=== PATIENT | male | born 1980 | race Caucasian/White ===

== ENCOUNTER 2020-09-10 17:23 | Inpatient (IN) ==
[2020-09-10] MEDS ORDERED: dexAMETHasone**PF** 10 MG/ML VIAL IV ONE (17:58)
[2020-09-10] MEDS ORDERED: SODIUM CHLORIDE 0.9% 1000ML 500 ML IV ONE (17:58)
--- NOTE | 2020-09-10 18:04 | Emergency Department Note ---
Impression & Plan Hypoxia, Pneumonia due to COVID-19 virus, SOB (shortness of breath), Failure of outpatient treatment ED Provider Note NAME: JAS SANCHEZ AGE: 39 SEX: M : 1980 ARRIVES VIA: Walk-In INFORMANT: [Patient] ED PROVIDER(S): [Gerardo Lawrence MD] CHIEF COMPLAINT: Hypoxia HISTORY OF PRESENT ILLNESS: Patient is a 39-year-old male presents to the ED with low oxygen levels. His saturation was 88% at home on the portable pulse ox meter. The patient was diagnosed with COVID-19 pneumonia yesterday. He was discharged on steroids, a Combivent inhaler, cough syrup. The patient states that today, he felt washed out. He felt as if all the energy had been drained from him. He has noticed some shortness of breath especially with exertion. He has had cough. His O2 saturation today read 88%, this is the lowest it has been, he presents to the ED as instructed. Patient has not had vomiting. He has had Covid symptoms now for about 1 week. His also has Covid, she is doing better than he. REVIEW OF SYSTEMS: See HPI for pertinent positives and negatives. A total of ten systems were reviewed and were otherwise negative. PMHx/PSHx: See Below SOCIAL HISTORY: See Below. PHYSICAL EXAM: GENERAL: Patient is in no acute distress. HEENT: No acute trauma, normocephalic atraumatic, mucous membranes moist, no nasal congestion, no scleral icterus. NECK: No stridor, no adenopathy, no meningismus, trachea is midline. LUNGS: There are a few crackles at both bases, no wheezing, no obvious respiratory distress. HEART: Mildly tachycardic, regular rhythm, no murmurs. ABDOMEN: Soft, nontender, bowel sounds positive, no hernias, no peritonitis. EXTREMITIES: No cyanosis or edema, full range of motion of all the joints without pain or difficulty, no signs for acute trauma. NEUROLOGIC: Oriented x 3, no acute motor or sensory deficits, no focal weakness. SKIN: No rash, no jaundice, no diaphoresis. DIFFERENTIAL DIAGNOSIS: Reactive airway disease, pneumonia, pneumothorax, Covid pneumonia, failed outpatient treatment, COPD, CHF, infection, cardiac ischemia, pulmonary embolism, bronchitis, musculoskeletal, gastrointestinal, as well as other pathologies. EMERGENCY DEPARTMENT COURSE/PROCEDURES: ECG: Indication was shortness of breath. The ECG shows a normal sinus rhythm with a rate of 90. There is no ST elevation, no PVCs. The QTc is 452. Continuous Cardiac Monitoring: An order was placed for continuous cardiac monitoring. The monitor shows a rate of 95 with normal sinus rhythm. MEDICAL DECISION MAKING: There is no leukocytosis or concerning anemia. There is a normal platelet count. D-dimer was elevated at over 1000, this certainly makes the chance of PE more likely. There was a slightly low potassium at 3.3. No kidney failure. E CG shows a sinus rhythm, no acute ischemia. Cardiac enzyme testing x1 is not consistent with acute cardiac injury. Chest CT does show evidence for Covid pneumonia, no PE noted. On exam, the patient had some crackles at his bases. He did become hypoxic while here in the ED. The patient presents with worsening breathing. He was hypoxic at home and that has been confirmed here in our emergency department. The patient was given IV potassium. He was given albuterol via MDI. He received a dose of IV Decadron 6 mg. He was given IV saline, 500 cc. Patient is hypoxic from Covid pneumonia. He has worsened since yesterday. He does deserve a hospital stay. I spoke to the patient and case management. The on-call hospitalist was consulted. Past Med/Surg History Medical History Hypertension Social History Smoking Status: Former smoker Tobacco Type: Cigarettes Feels Safe at Home: Yes Allergies Allergies Allergy/AdvReac Type Severity Reaction Status Date / Time aspirin Allergy Intermediate WHEN Verified 09/10/20 19:23 YOUNGER HAD NOSE BLEEDS AND INCREASE BLEEDING ON ASA. Home Meds Home Medications Medication Instructions Recorded Confirmed atorvastatin 20 mg PO HS 09/09/20 09/10/20 benzonatate 100 mg PO DIRECTED PRN 09/09/20 09/10/20 hydrochlorothiazide 25 mg PO QAM 09/09/20 09/10/20 lisinopril 40 mg PO HS 09/09/20 09/10/20 metoprolol succinate 25 mg PO HS 09/09/20 09/10/20 promethazine-codeine 0 ml PO DIRECTED PRN 09/09/20 09/10/20 Previous Rx's Medication Instructions Recorded dexamethasone 6 mg PO DAILY #10 tab 09/09/20 Results & Data (ED) Vital Signs Vital Signs - 24 hr 09/10/20 17:28 09/10/20 18:43 Temperature 36.7 C Temperature Source Temporal Artery Scan Pulse Rate 95 H Pulse Rhythm Regular Pulse Strength Normal Respiratory Rate 20 Respiratory Effort / Characteristics Non-Labored Spontaneous Respiratory Depth Normal Respiratory Pattern Regular Blood Pressure 119/76 Blood Pressure Mean 90 Blood Pressure Position Sitting Pulse Oximetry 96 84 L Oxygen Delivery Method Room Air Room Air Nasal Cannula Sepsis Recent Fever Within 48 Hours No Sepsis New/Unexplained Change in Mental Status N/A Sepsis Action Taken by Nursing No Action Required Oxygen Flow Rate - Titration 2 Pulse Oximetry Post Tiitration 95 Home Medications Current Medication List: was personally reviewed by me Laboratory Data Attestation: I reviewed the patient's lab results. Result diagrams: 09/10/20 18:22 09/10/20 18:22 Lab Results 09/10/20 09/10/20 09/10/20 Range/Units 18:22 18:22 18:22 WBC 6.96 (4.8-10.8) K/uL RBC 4.87 (4.7-6.1) M/uL Hgb 14.5 (14.0-18.0) g/dL Hct 40.5 L (42-52) % MCV 83.2 (80-100) fL MCH 29.8 (25-34) pg MCHC 35.8 (32-36) g/dL RDW Std Deviation 39.3 (36.4-46.3) fL RDW Coeff of [place]io 12.9 (11.5-14.5) % Plt Count 187 (130-400) K/uL MPV 9.1 (7.4-10.4) fL Immature Gran % (Auto) 0.1 % Neut % (Auto) 85.4 % Lymph % (Auto) 9.5 % [place] % (Auto) 5.0 % Eos % (Auto) 0.0 % Baso % (Auto) 0.0 % Neut # (Auto) 5.94 (1.4-6.5) K/uL Lymph # (Auto) 0.66 L (1.2-3.4) K/uL [place] # (Auto) 0.35 (0.11-0.59) K/uL Eos # (Auto) 0.00 (0-0.5) K/uL Baso # (Auto) 0.00 (0-0.2) K/uL Immature Gran # (Auto) 0.01 (0.00-0.02) K/uL APTT (21.0-31.0) Seconds PTT Ratio D-Dimer 1110 H* (0-500) ug/L FEU Sodium 134 L (136-145) mmol/L Potassium 3.3 L (3.5-5.1) mmol/L Chloride 97 L (98-107) mmol/L Carbon Dioxide 32 (21-32) mmol/L Anion Gap 5.0 (3-11) BUN 21 H (7-18) mg/dl Creatinine 1.18 (0.6-1.4) mg/dl Est Cr Clr Drug Dosing 106.1 ml/min Est GFR ( Amer) 88.9 Est GFR (Non-Af Amer) 76.7 BUN/Creatinine Ratio 18.0 (10-20) Glucose 129 H (70-99) mg/dl Calcium 9.0 (8.5-10.1) mg/dl Troponin I < 0.015 (0-0.045) ng/ml 09/10/20 Range/Units 18:22 WBC (4.8-10.8) K/uL RBC (4.7-6.1) M/uL Hgb (14.0-18.0) g/dL Hct (42-52) % MCV (80-100) fL MCH (25-34) pg MCHC (32-36) g/dL RDW Std Deviation (36.4-46.3) fL RDW Coeff of [place] (11.5-14.5) % Plt Count (130-400) K/uL MPV (7.4-10.4) fL Immature Gran % (Auto) % Neut % (Auto) % Lymph % (Auto) % [place] % (Auto) % Eos % (Auto) % Baso % (Auto) % Neut # (Auto) (1.4-6.5) K/uL Lymph # (Auto) (1.2-3.4) K/uL [place] # (Auto) (0.11-0.59) K/uL Eos # (Auto) (0-0.5) K/uL Baso # (Auto) (0-0.2) K/uL Immature Gran # (Auto) (0.00-0.02) K/uL APTT 25.1 (21.0-31.0) Seconds PTT Ratio 1.0 D-Dimer (0-500) ug/L FEU Sodium (136-145) mmol/L Potassium (3.5-5.1) mmol/L Chloride (98-107) mmol/L Carbon Dioxide (21-32) mmol/L Anion Gap (3-11) BUN (7-18) mg/dl Creatinine (0.6-1.4) mg/dl Est Cr Clr Drug Dosing ml/min Est GFR ( Amer) Est GFR (Non-Af Amer) BUN/Creatinine Ratio (10-20) Glucose (70-99) mg/dl Calcium (8.5-10.1) mg/dl Troponin I (0-0.045) ng/ml Administered Medications Discontinued Medications Dexamethasone Sodium Phosphate (DexamethasonePf 10 Mg/Ml Vial) 6 mg IV NOW ONE Stop: 09/10/20 17:59 Last Admin: 09/10/20 18:42 Dose: 6 mg Documented by: [id number] Sodium Chloride (Nss 1000ml) 500 mls @ 999 mls/hr IV .Q31M ONE Stop: 09/10/20 18:28 Last Admin: 09/10/20 18:42 Dose: 999 mls/hr Documented by: [id number] Ioversol (Optiray 350 500ml) 117 ml IV ONCE ONE Stop: 09/10/20 20:26 Last Admin: 09/10/20 20:25 Dose: 117 ml Documented by: [id number] Imaging Data Radiologist's Impression: Chest CTA 09/10/20 19:31 CT ANGIOGRAM OF THE CHEST CLINICAL HISTORY: Atypical chest pain. Hypoxia. Covid positive patient COMPARISON STUDY: Chest x-ray dated 09/09/2020 TECHNIQUE: Following the IV administration of 117 mL of Optiray, CT angiogram of the thorax was performed from the thoracic inlet to the lung bases utilizing the pulmonary embolus protocol. Images are reviewed in the axial, sagittal, and coronal planes. IV contrast was administered without complication. MIP imaging was performed. A dose lowering technique was utilized adhering to the principles of ALARA. CT DOSE: 696.95 mGy.cm FINDINGS: There is hepatic steatosis. There is possible splenomegaly There are borderline enlarged mediastinal and hilar lymph nodes, likely reactive. There is no evidence of thoracic aortic dilatation There were no pulmonary artery filling defects to indicate acute pulmonary embolism. No pleural effusions are visualized. There are multifocal groundglass pulmonary opacities consistent with a multifocal pneumonia. The findings are consistent with although not specific for Covid 19 pneumonia IMPRESSION: 1. No evidence of acute pulmonary embolism 2. Multifocal pulmonary airspace opacities consistent with a multifocal pneumonia. Findings are consistent with although not specific for Covid 19 pneumonia 3. Hepatic steatosis ACT 112: Negative or not required by law. Electronically signed by: Eben Bell M.D. 09/10/2020 8:39 PM Discharge Plan Visit Data Chief Complaint: Illness Stated Complaint: LOW OXYGEN LEVELS ED Provider: Gerardo Lawrence Discharge Problem: Hypoxia, Pneumonia due to COVID-19 virus, SOB (shortness of breath), Failure of outpatient treatment Patient Disposition: Admitted As Inpatient Condition: Fair Forms Stand Alone Forms: [facility] Prescriptions Prescriptions: No Action atorvastatin 20 mg tablet 20 mg PO HS RF: 0 promethazine-codeine 6.25-10 mg/5 mL syrup 0 ml PO DIRECTED PRN (Reason: Cough) RF: 0 benzonatate 100 mg capsule 100 mg PO DIRECTED PRN (Reason: Cough) RF: 0 hydrochlorothiazide 25 mg tablet 25 mg PO QAM RF: 0 metoprolol succinate 25 mg tablet extended release 24 hr 25 mg PO HS RF: 0 lisinopril 40 mg tablet 40 mg PO HS RF: 0 dexamethasone 6 mg tablet 6 mg PO DAILY Qty: 10 RF: 0 Referrals Referrals: Niecy Gilliam MD [Primary Care Provider] -
[2020-09-10 18:37] LABS: Hematocrit (blood only) 40.5 % (42-52); Hemoglobin 14.5 g/dL (14.0-18.0); Immature Granulocytes # (auto) 0.01 K/uL (0.00-0.02); Immature Granulocytes % (auto) 0.1 %; Lymphocytes # (auto) 0.66 K/uL (1.2-3.4); Lymphocytes % (auto) 9.5 %; Mean Corpuscular Hemoglobin 29.8 pg (25-34); Mean Corpuscular Hgb Conc 35.8 g/dL (32-36); Mean Corpuscular Volume 83.2 fL (80-100); Mean Platelet Volume 9.1 fL (7.4-10.4); Monocytes # (auto) 0.35 K/uL (0.11-0.59); Neutrophils # (auto) 5.94 K/uL (1.4-6.5); Neutrophils % (auto) 85.4 %; Platelet Count 187 K/uL (130-400); RDW Coefficient of Variation 12.9 % (11.5-14.5); RDW Standard Deviation 39.3 fL (36.4-46.3); Red Blood Count 4.87 M/uL (4.7-6.1); White Blood Count 6.96 K/uL (4.8-10.8)
[2020-09-10 18:49] LABS: Blood Urea Nitrogen 21 mg/dl (7-18); Carbon Dioxide 32 mmol/L (21-32); Chloride 97 mmol/L (98-107); Creatinine Clr Calc Pharmacy 106.1 ml/min; Est GFR (African American) 88.9; Est GFR (Non-African American) 76.7; Glucose 129 mg/dl (70-99); Potassium 3.3 mmol/L (3.5-5.1); Sodium 134 mmol/L (136-145)
[2020-09-10 18:53] LABS: Troponin I < 0.015 ng/ml (0-0.045)
[2020-09-10] MEDS ORDERED: POTASSIUM CHLORIDE / WTR 10 MEQ/100 ML PLCT IV ONE (18:57)
[2020-09-10 19:28] LABS: D Dimer 1110 ug/L FEU (0-500)
[2020-09-10] MEDS ORDERED: OPTIRAY 350 500ml IV ONE (20:25)
--- NOTE | 2020-09-10 20:41 | CT Scan Report ---
CT ANGIOGRAM OF THE CHEST CLINICAL HISTORY: Atypical chest pain. Hypoxia. Covid positive patient COMPARISON STUDY: Chest x-ray dated 09/09/2020 TECHNIQUE: Following the IV administration of 117 mL of Optiray, CT angiogram of the thorax was perfo rmed from the thoracic inlet to the lung bases utilizing the pulmonary embolus protocol. Images are r eviewed in the axial, sagittal, and coronal planes. IV contrast was administered without complication . MIP imaging was performed. A dose lowering technique was utilized adhering to the principles of AL BRIGHT. CT DOSE: 696.95 mGy.cm FINDINGS: There is hepatic steatosis. There is possible splenomegaly There are borderline enlarged mediastinal and hilar lymph nodes, likely reactive. There is no evidence of thoracic aortic dilatation There were no pulmonary artery filling defects to indicate acute pulmonary embolism. No pleural effusions are visualized. There are multifocal groundglass pulmonary opacities consistent with a multifocal pneumonia. The find ings are consistent with although not specific for Covid 19 pneumonia IMPRESSION: 1. No evidence of acute pulmonary embolism 2. Multifocal pulmonary airspace opacities consistent with a multifocal pneumonia. Findings are consi stent with although not specific for Covid 19 pneumonia 3. Hepatic steatosis ACT 112: Negative or not required by law. Electronically signed by: Eben Bell M.D. 09/10/2020 8:39 PM
[2020-09-10] MEDS ORDERED: LEVALBUTEROL TARTRATE 15 GM HFA.AER.AD INH STA (20:52)
[2020-09-10] MEDS ORDERED: POTASSIUM CHLORIDE CRTAB 20 MEQ TABCR PO STA (20:54)
[2020-09-10 21:12] LABS: Partial Thromboplastin Time 25.1 Seconds (21.0-31.0)
--- NOTE | 2020-09-10 21:39 | History & Physical Report ---
Date of Service September 10, 2020 Assessment & Plan (1) Acute hypoxemic respiratory failure: secondary to severe COVID-19 pneumonia Failed outpatient treatment hypertension, stable Hypokalemia secondary to poor p.o. intake, home diuretic Rx, transient diarrhea symptoms Hyperglycemia rule out DM past tobacco abuse Medical telemetry Supplemental O2 Baseline ABG Decadron Patient hesitant about receiving remdesivir and convalescent plasma for now. Replace potassium, IVF, hold home diuretic until patient euvolemic Check hemoglobin A1c DVT prophylaxis per Lovenox subcu Full code Text document was generated using [employer] voice recognition software. It may contain grammatical or spelling errors. Kindly contact undersigned for clarification of any documentation item in question. History of Present Illness Chief Complaint: low oxygen Primary Care Provider: Niecy Marcelo MD History obtained from patient, family, and records. Medical history significant for hypertension, hyperlipidemia, past tobacco abuse. 1 week history of flulike symptoms, dry cough, shortness of breath. Chest pain with coughing. Transient diarrhea symptoms. Sick COVID-19 contacts at home. Patient seen at the ER yesterday. COVID-19 test was positive. Lowest O2 sats 91 to 92%. Chest x-ray showed viral pneumonia. Patient discharged on oral Decadron course. At home, O2 sats on home pulse ox noted to be 88. Patient returned to the ER. Medical History as above Surgical History : Right leg trauma surgery Family History : Heart disease, DM Personal/Social history : Past tobacco abuse, occasional EtOH intake, underground work Allergies Allergy/AdvReac Type Severity Reaction Status Date / Time aspirin Allergy Intermediate WHEN Verified 09/10/20 19:23 YOUNGER HAD NOSE BLEEDS AND INCREASE BLEEDING ON ASA. Home Medications Medication Instructions Recorded Confirmed Type atorvastatin 20 mg PO HS 09/09/20 09/10/20 History benzonatate 100 mg PO DIRECTED PRN 09/09/20 09/10/20 History dexamethasone 6 mg PO DAILY #10 tab 09/09/20 09/10/20 Rx hydrochlorothiazide 25 mg PO QAM 09/09/20 09/10/20 History lisinopril 40 mg PO HS 09/09/20 09/10/20 History metoprolol succinate 25 mg PO HS 09/09/20 09/10/20 History promethazine-codeine 0 ml PO DIRECTED PRN 09/09/20 09/10/20 History Past Med/Surg History Medical History Hypertension Social History Smoking Status: Former smoker Tobacco Type: Cigarettes Feels Safe at Home: Yes Review of Systems Review of Systems: As per HPI, all 10 systems reviewed, all other ROS negative Physical Exam Physical Exam: GENERAL: Comfortable, obese, slightly anxious, no respiratory distress SKIN: Normal color, warm HEENT: [place] palpebral conjunctivae, no ptosis, dry buccal mucosa, nasal cannula in place NECK : Supple, short neck, no tenderness CHEST : Decreased breath sounds, no tenderness HEART : RRR, no obvious murmurs ABDOMEN: Some distention, nontender EXTREMITIES : Minimal LE swelling, no LE tenderness, no other conspicuous deformities noted NEUROLOGIC : Coherent, no facial asymmetry, no other gross focality Results & Data Results & Data ([facility]) Vital Signs (Past 12 Hours) Vital Signs Temp Pulse Resp BP Pulse Ox 09/10/20 21:00 117/68 96 09/10/20 20:00 118/81 95 09/10/20 19:30 125/81 94 09/10/20 19:00 126/74 96 09/10/20 18:45 86 12 116/76 97 09/10/20 18:43 84 L 09/10/20 17:28 36.7 C 95 H 20 119/76 96 Laboratory Results Laboratory Results WBC 6.96 K/uL (4.8-10.8) 09/10/20 18: RBC 4.87 M/uL (4.7-6.1) 09/10/20 18:22 Hgb 14.5 g/dL (14.0-18.0) 09/10/20 18:22 Hct 40.5 % (42-52) L 09/10/20 18:22 MCV 83.2 fL (80-100) 09/10/20 18: MCH 29.8 pg (25-34) 09/10/20 18:22 MCHC 35.8 g/dL (32-36) 09/10/20 18:22 RDW Std Deviation 39.3 fL (36.4-46.3) 09/10/20 18: RDW Coeff of Caio 12.9 % (11.5-14.5) 09/10/20 18: Plt Count 187 K/uL (130-400) 09/10/20 18: MPV 9.1 fL (7.4-10.4) 09/10/20 18: Immature Gran % (Auto) 0.1 % 09/10/20 18: Neut % (Auto) 85.4 % 09/10/20 18: Lymph % (Auto) 9.5 % 09/10/20 18: [place] % (Auto) 5.0 % 09/10/20 18: Eos % (Auto) 0.0 % 09/10/20 18: Baso % (Auto) 0.0 % 09/10/20 18: Neut # (Auto) 5.94 K/uL (1.4-6.5) 09/10/20 18: Lymph # (Auto) 0.66 K/uL (1.2-3.4) L 09/10/20 18: [place] # (Auto) 0.35 K/uL (0.11-0.59) 09/10/20 18: Eos # (Auto) 0.00 K/uL (0-0.5) 09/10/20 18: Baso # (Auto) 0.00 K/uL (0-0.2) 09/10/20 18: Immature Gran # (Auto) 0.01 K/uL (0.00-0.02) 09/10/20 18: APTT 25.1 Seconds (21.0-31.0) 09/10/20 18: PTT Ratio 1.0 09/10/20 18: D-Dimer 1110 ug/L FEU (0-500) H* 09/10/20 18: Sodium 134 mmol/L (136-145) L 09/10/20 18: Potassium 3.3 mmol/L (3.5-5.1) L 09/10/20 18: Chloride 97 mmol/L (98-107) L 09/10/20 18: Carbon Dioxide 32 mmol/L (21-32) 09/10/20 18: Anion Gap 5.0 (3-11) 09/10/20 18: BUN 21 mg/dl (7-18) H 09/10/20 18:22 Creatinine 1.18 mg/dl (0.6-1.4) 09/10/20 18:22 Est Cr Clr Drug Dosing 106.1 ml/min 09/10/20 18:22 Est GFR ( Amer) 88.9 09/10/20 18:22 Est GFR (Non-Af Amer) 76.7 09/10/20 18:22 BUN/Creatinine Ratio 18.0 (10-20) 09/10/20 18:22 Glucose 129 mg/dl (70-99) H 09/10/20 18:22 Calcium 9.0 mg/dl (8.5-10.1) 09/10/20 18:22 Troponin I < 0.015 ng/ml (0-0.045) 09/10/20 18:22 Impressions Chest CTA 09/10/20 19:31 CT ANGIOGRAM OF THE CHEST CLINICAL HISTORY: Atypical chest pain. Hypoxia. Covid positive patient COMPARISON STUDY: Chest x-ray dated 09/09/2020 TECHNIQUE: Following the IV administration of 117 mL of Optiray, CT angiogram of the thorax was performed from the thoracic inlet to the lung bases utilizing the pulmonary embolus protocol. Images are reviewed in the axial, sagittal, and coronal planes. IV contrast was administered without complication. MIP imaging was performed. A dose lowering technique was utilized adhering to the principles of ALARA. CT DOSE: 696.95 mGy.cm FINDINGS: There is hepatic steatosis. There is possible splenomegaly There are borderline enlarged mediastinal and hilar lymph nodes, likely reactive. There is no evidence of thoracic aortic dilatation There were no pulmonary artery filling defects to indicate acute pulmonary embolism. No pleural effusions are visualized. There are multifocal groundglass pulmonary opacities consistent with a multifocal pneumonia. The findings are consistent with although not specific for Covid 19 pneumonia IMPRESSION: 1. No evidence of acute pulmonary embolism 2. Multifocal pulmonary airspace opacities consistent with a multifocal pneumonia. Findings are consistent with although not specific for Covid 19 pneumonia 3. Hepatic steatosis ACT 112: Negative or not required by law. Electronically signed by: Eben Bell M.D. 09/10/2020 8:39 PM Diagnostic Findings EKG as per my interpretation: Rate 90, NSR, normal axis, no ischemia
[2020-09-10 22:06] LABS: Alanine Aminotransferase 45 U/L (12-78); Albumin Level 3.7 gm/dl (3.4-5.0); Alkaline Phosphatase 58 U/L (45-117); Aspartate Aminotransferase 40 U/L (15-37); Bilirubin Direct < 0.1 mg/dl (0-0.2); Bilirubin,Total 0.6 mg/dl (0.2-1); Magnesium 2.5 mg/dl (1.8-2.4); Total Protein 7.4 gm/dl (6.4-8.2)
[2020-09-11] MEDS ORDERED: PROMETHAZINE HCL 12.5 MG in SODIUM CHLORIDE 0.9% 50 ML IV PRN (00:15)
[2020-09-11] MEDS ORDERED: LORazepam 0.25 MG/0.5 ML VIAL IV PRN (00:15)
[2020-09-11] MEDS ORDERED: BENZONATATE 100 MG CAPSULE PO PRN (00:15)
[2020-09-11] MEDS ORDERED: POTASSIUM CHLORIDE 40 MEQ in SODIUM CHLORIDE 0.9% 1000ML 1,000 ML IV ONE ×2 (00:45→23:36)
[2020-09-11] MEDS: METOPROLOL SUCC 25MG EXT REL TAB PO SCH ×2 (01:20→07:28)
[2020-09-11] MEDS: guaiFENesin 600 MG TABCR PO SCH ×3 (01:40→20:39)
[2020-09-11] MEDS: LEVALBUTEROL TARTRATE 15 GM HFA.AER.AD INH SCH ×4 (07:27→19:32)
[2020-09-11] MEDS: ENOXAPARIN INJ 40 MG/0.4 ML SYR SQ SCH (07:27)
[2020-09-11] MEDS: dexAMETHasone 6 MG in SYRINGE 0 ML IV SCH (07:27)
[2020-09-11] MEDS: ACETAMINOPHEN 325 MG TAB PO PRN ×2 (07:38→19:23)
[2020-09-11 07:54] LABS: Estimated Average Glucose 123 mg/dl; Hemoglobin A1C 5.9 % (4.5-5.6)
--- NOTE | 2020-09-11 12:04 | Hospitalist Progress Note ---
Date of Service September 11, 2020 Assessment & Plan (1) Acute hypoxemic respiratory failure: Acute hypoxic respiratory failure COVID Pneumonia Hypokalemia History of hypertension Former tobacco user Overall patient states that he is feeling better today. Currently remains on 2 L of nasal cannula. CTA with opacities, absence of any PE. Currently patient remains on Decadron. Refuses remdesivir. States he does not want to try any of that stuff. WBC was within normal limit on admission. Remains afebrile. Hemodynamically he is doing fine. Troponins are not concerning. Discontinue IV fluids today. Continue AUCTIONEER ART lisinopril 40 mg daily, Toprol-XL 25 mg daily, Lipitor 20 mg daily. Hold AUCTIONEER ART hydrochlorothiazide for now. Incentive spirometer and respiratory protocol. Lovenox for DVT prophylaxis. Admission and Anticipated Discharge Date Admission Date: September 10, 2020 Subjective Reports he currently feels better. Currently remains on 2 L of nasal cannula. Shortness of breath is improved. Continues to have minimal nonproductive cough. His appetite is improved today. Denies any chest pain, abdominal pain, diarrhea or dysuria. Review of Systems Review of Systems: All systems reviewed & are unremarkable except as noted in HPI & below Physical Exam Physical Exam: General: A&Ox3 HENT: NCAT, MMM, EOMI Eyes: PERRLA Neck: Supple, normal range of motion CVS: normal rate and rhythm Resp: b/l good breath sound Abdomen: Soft, nondistended and nontender Extremities: Absence of any edema Neuro: face symmetric, strno focal deficit Skin: warm and dry, no rashes/lesions/errythema MSK: normal ROM, no joint swelling/erythema Results & Data Results & Data ([facility]) Vital Signs (Past 12 Hours) Vital Signs Temp Pulse Pulse Resp BP Pulse Ox Pulse Ox 09/11/20 11:26 36.9 C 87 19 108/71 92 09/11/20 11:15 93 H 18 94 09/11/20 08:00 92 H 09/11/20 07:16 37.2 C 98 H 18 113/72 95 09/11/20 02:53 36.8 C 86 18 109/69 96 09/11/20 00:15 98
--- NOTE | 2020-09-11 12:14 | Electrocardiogram Report ---
Test Reason : Blood Pressure : / mmHG Vent. Rate : 090 BPM Atrial Rate : 090 BPM P-R Int : 186 ms QRS Dur : 108 ms QT Int : 370 ms P-R-T Axes : 007 023 021 degrees QTc Int : 452 ms Normal sinus rhythm Normal ECG When compared with ECG of 09-SEP-2020 18:42, No significant change was found Confirmed by Harry Lopez ([id number]) on 09/11/2020 12:13:58 PM Referred By: REFERRED SELF Confirmed By:Rolly Lopez
[2020-09-11] MEDS ORDERED: lisinopril 40 MG TAB PO SCH (21:00)
[2020-09-11] MEDS ORDERED: ATORVASTATIN 20 MG TAB PO SCH (21:00)
[2020-09-11] MEDS ORDERED: ACETAMINOPHEN 325 MG TAB PO STA (23:35)
[2020-09-11] MEDS ORDERED: POTASSIUM CHLORIDE CRTAB 20 MEQ TABCR PO STA (23:35)
[2020-09-12 06:49] LABS: Basophils # (auto) 0.01 K/uL (0-0.2); Basophils % (auto) 0.1 %; Hematocrit (blood only) 37.1 % (42-52); Hemoglobin 12.9 g/dL (14.0-18.0); Immature Granulocytes # (auto) 0.02 K/uL (0.00-0.02); Immature Granulocytes % (auto) 0.2 %; Lymphocytes # (auto) 1.05 K/uL (1.2-3.4); Lymphocytes % (auto) 9.6 %; Mean Corpuscular Hemoglobin 29.8 pg (25-34); Mean Corpuscular Hgb Conc 34.8 g/dL (32-36); Mean Corpuscular Volume 85.7 fL (80-100); Mean Platelet Volume 8.7 fL (7.4-10.4); Monocytes # (auto) 0.31 K/uL (0.11-0.59); Monocytes % (auto) 2.8 %; Neutrophils # (auto) 9.51 K/uL (1.4-6.5); Neutrophils % (auto) 87.3 %; Platelet Count 209 K/uL (130-400); RDW Coefficient of Variation 13.6 % (11.5-14.5); RDW Standard Deviation 43.1 fL (36.4-46.3); Red Blood Count 4.33 M/uL (4.7-6.1)
[2020-09-12 07:17] LABS: BUN Creatinine Ratio 24.6 (10-20); C Reactive Protein 4.01 mg/dl (0-0.29); Calcium 8.1 mg/dl (8.5-10.1); Creatinine Clr Calc Pharmacy 123.7 ml/min; Est GFR (African American) 107.3; Est GFR (Non-African American) 92.6; Potassium 3.9 mmol/L (3.5-5.1)
[2020-09-12] MEDS: LEVALBUTEROL TARTRATE 15 GM HFA.AER.AD INH SCH (07:29)
[2020-09-12] MEDS: ENOXAPARIN INJ 40 MG/0.4 ML SYR SQ SCH (08:13)
[2020-09-12] MEDS: guaiFENesin 600 MG TABCR PO SCH (08:13)
[2020-09-12] MEDS: dexAMETHasone 6 MG in SYRINGE 0 ML IV SCH (08:17)
[2020-09-12] MEDS ORDERED: LEVALBUTEROL TARTRATE 15 GM HFA.AER.AD INH PRN (09:14)
--- NOTE | 2020-09-12 14:57 | Discharge Summary ---
Date of Service September 12, 2020 Admission HPI Per Admitting Provider History obtained from patient, family, and records. Medical history significant for hypertension, hyperlipidemia, past tobacco abuse. 1 week history of flulike symptoms, dry cough, shortness of breath. Chest pain with coughing. Transient diarrhea symptoms. Sick COVID-19 contacts at home. Patient seen at the ER yesterday. COVID-19 test was positive. Lowest O2 sats 91 to 92%. Chest x-ray showed viral pneumonia. Patient discharged on oral Decadron course. At home, O2 sats on home pulse ox noted to be 88. Patient returned to the ER. Medical History as above Surgical History : Right leg trauma surgery Family History : Heart disease, DM Personal/Social history : Past tobacco abuse, occasional EtOH intake, underground work Admission Exam Per Admitting Provider GENERAL: Comfortable, obese, slightly anxious, no respiratory distress SKIN: Normal color, warm HEENT: [place] palpebral conjunctivae, no ptosis, dry buccal mucosa, nasal cannula in place NECK : Supple, short neck, no tenderness CHEST : Decreased breath sounds, no tenderness HEART : RRR, no obvious murmurs ABDOMEN: Some distention, nontender EXTREMITIES : Minimal LE swelling, no LE tenderness, no other conspicuous deformities noted NEUROLOGIC : Coherent, no facial asymmetry, no other gross focality Principal Diagnosis Acute hypoxic respiratory failure Pneumonia due to COVID-19 virus Hypokalemia Discharge Exam CONSTITUTIONAL: WNWD, vitals as above, generally well-appearing EYES: normal conjunctivae, no scleral icterus ENT: external ear and nose normal, MMM NECK: trachea midline RESPIRATORY: clear to auscultation bilaterally, no crackles, rales or wheezes, normal respiratory effort, off supplemental oxygen. CARDIOVASCULAR: regular rate and rhythm, S1 and 2 heard without murmurs, gallops or rubs, no JVD, no peripheral edema CHEST: inspection of chest was normal GASTROINTESTINAL: soft, nontender, nondistended. MUSCULOSKELETAL: strength 5/5 throughout, head is normocephalic and atraumatic, ambulatory SKIN: warm and dry NEUROLOGIC: CN 2-12 grossly intact, normal cognition, normal speech, no gross focal deficits. PSYCHIATRIC: alert cooperative and oriented to person, place and time. Discharge Data Allergies Allergy/AdvReac Type Severity Reaction Status Date / Time aspirin Allergy Intermediate WHEN Verified 09/10/20 19:23 YOUNGER HAD NOSE BLEEDS AND INCREASE BLEEDING ON ASA. Consultations 09/10/20 20:49 ED Decision to Admit Stat Ordered Studies Laboratory Results WBC 10.90 K/uL (4.8-10.8) H 09/12/20 06:31 RBC 4.33 M/uL (4.7-6.1) L 09/12/20 06:31 Hgb 12.9 g/dL (14.0-18.0) L 09/12/20 06:31 Hct 37.1 % (42-52) L 09/12/20 06:31 MCV 85.7 fL (80-100) 09/12/20 06:31 MCH 29.8 pg (25-34) 09/12/20 06:31 MCHC 34.8 g/dL (32-36) 09/12/20 06:31 RDW Std Deviation 43.1 fL (36.4-46.3) 09/12/20 06:31 RDW Coeff of Caio 13.6 % (11.5-14.5) 09/12/20 06:31 Plt Count 209 K/uL (130-400) 09/12/20 06:31 MPV 8.7 fL (7.4-10.4) 09/12/20 06:31 Immature Gran % (Auto) 0.2 % 09/12/20 06:31 Neut % (Auto) 87.3 % 09/12/20 06:31 Lymph % (Auto) 9.6 % 09/12/20 06:31 [place] % (Auto) 2.8 % 09/12/20 06:31 Eos % (Auto) 0.0 % 09/12/20 06:31 Baso % (Auto) 0.1 % 09/12/20 06:31 Neut # (Auto) 9.51 K/uL (1.4-6.5) H 09/12/20 06:31 Lymph # (Auto) 1.05 K/uL (1.2-3.4) L 09/12/20 06:31 [place] # (Auto) 0.31 K/uL (0.11-0.59) 09/12/20 06:31 Eos # (Auto) 0.00 K/uL (0-0.5) 09/12/20 06:31 Baso # (Auto) 0.01 K/uL (0-0.2) 09/12/20 06:31 Immature Gran # (Auto) 0.02 K/uL (0.00-0.02) 09/12/20 06:31 APTT 25.1 Seconds (21.0-31.0) 09/10/20 18:22 PTT Ratio 1.0 09/10/20 18:22 D-Dimer 1110 ug/L FEU (0-500) H* 09/10/20 18:22 Sodium 135 mmol/L (136-145) L 09/12/20 06:31 Potassium 3.9 mmol/L (3.5-5.1) D 09/12/20 06:31 Chloride 103 mmol/L (98-107) 09/12/20 06:31 Carbon Dioxide 27 mmol/L (21-32) 09/12/20 06:31 Anion Gap 5.0 (3-11) 09/12/20 06:31 BUN 25 mg/dl (7-18) H 09/12/20 06:31 Creatinine 1.01 mg/dl (0.6-1.4) 09/12/20 06:31 Est Cr Clr Drug Dosing 123.7 ml/min 09/12/20 06:31 Est GFR ( Amer) 107.3 09/12/20 06:31 Est GFR (Non-Af Amer) 92.6 09/12/20 06:31 BUN/Creatinine Ratio 24.6 (10-20) H 09/12/20 06:31 Glucose 105 mg/dl (70-99) H 09/12/20 06:31 Estimat Average Glucose 123 mg/dl 09/10/20 18:22 Hemoglobin A1c 5.9 % (4.5-5.6) H 09/10/20 18:22 Calcium 8.1 mg/dl (8.5-10.1) L 09/12/20 06:31 Magnesium 2.5 mg/dl (1.8-2.4) H 09/10/20 18:22 Total Bilirubin 0.6 mg/dl (0.2-1) 09/10/20 18:22 Direct Bilirubin < 0.1 mg/dl (0-0.2) 09/10/20 18:22 AST 40 U/L (15-37) H 04/21/21 18:22 ALT 45 U/L (12-78) 09/10/20 18:22 Alkaline Phosphatase 58 U/L (45-117) 09/10/20 18:22 Troponin I < 0.015 ng/ml (0-0.045) 09/10/20 18:22 C-Reactive Protein 4.01 mg/dl (0-0.29) H 09/12/20 06:31 Total Protein 7.4 gm/dl (6.4-8.2) 09/10/20 18:22 Albumin 3.7 gm/dl (3.4-5.0) 09/10/20 18:22 Impressions Chest CTA 09/10/20 19:31 CT ANGIOGRAM OF THE CHEST CLINICAL HISTORY: Atypical chest pain. Hypoxia. Covid positive patient COMPARISON STUDY: Chest x-ray dated 09/09/2020 TECHNIQUE: Following the IV administration of 117 mL of Optiray, CT angiogram of the thorax was performed from the thoracic inlet to the lung bases utilizing the pulmonary embolus protocol. Images are reviewed in the axial, sagittal, and coronal planes. IV contrast was administered without complication. MIP imaging was performed. A dose lowering technique was utilized adhering to the principles of ALARA. CT DOSE: 696.95 mGy.cm FINDINGS: There is hepatic steatosis. There is possible splenomegaly There are borderline enlarged mediastinal and hilar lymph nodes, likely reactive. There is no evidence of thoracic aortic dilatation There were no pulmonary artery filling defects to indicate acute pulmonary embolism. No pleural effusions are visualized. There are multifocal groundglass pulmonary opacities consistent with a multifocal pneumonia. The findings are consistent with although not specific for Covid 19 pneumonia IMPRESSION: 1. No evidence of acute pulmonary embolism 2. Multifocal pulmonary airspace opacities consistent with a multifocal pneumonia. Findings are consistent with although not specific for Covid 19 pneumonia 3. Hepatic steatosis ACT 112: Negative or not required by law. Electronically signed by: Eben Bell M.D. 09/10/2020 8:39 PM Hospital Course (1) Acute hypoxemic respiratory failure: (2) Hypokalemia: (3) Pneumonia due to COVID-19 virus: 39 yo M with obesity and hepatic steatosis presented with evolving acute respiratory failure 2/2 pneumonia from COVID-19 virus. He was started on decadron and improved over his time in the hospital. He declined remdesivir therapy. He passed a two step test and was resting and ambulating off oxygen supplementation at time of hospital discharge. He was hemodynamically stable and afebrile and mentating and ambulating at baseline and tolerating PO at this point. He was eagerly requesting discharge home. As he had only received a couple of days of decadron as inpatient, he was advised to continue the decadron pills he was given prior to arrival by his PCP to complete the course. He verbalized understanding with intent to comply. A repeat chest xray in 4-6 weeks may be considered to ensure complete resolution of pneumonia. He was discharged in stable condiiton with close primary care followup recommended. Total Time Total Time Spent Total Time Spent (In Minutes): 60 Total Time Includes: Examination of the Patient, Discharge Planning, Medication Reconciliation and Communication With Other Providers Discharge Plan Discharge Items Patient Disposition: Home - Self-Care Reason For Visit: RESP FAILURE, COVID Discharge Diagnosis: Acute hypoxic respiratory failure Pneumonia due to COVID-19 virus Hypokalemia Condition on Discharge: Good Activity: Resume your previous activity Non-emergency contact: Primary Care Provider Call non-emergency contact if: you have any medication questions and your symptoms worsen Follow-up/Referrals: Niecy Gilliam MD [Primary Care Provider] - (Date & Time 09/18/2020 3:20 PM Provider Niecy Marcelo MD Department Internal Medicine [facility] PLEASE NOTE THAT THIS IS A TELEHEALTH APPOINTMENT. PLEASE FOLLOW THE INSTRUCTIONS PROVIDED IN YOUR EMAIL. IF YOU HAVE ANY QUESTIONS REGARDING THIS APPOINTMENT, PLEASE CALL ) Diet: Heart Healthy Addtl Attending Provider Instructions: Please take all medications as instructed on discharge as below. You are being given a short course of steroids to continue. It is recommended that you follow-up with your primary care doctor within 1 week to ensure you are still doing well after discharge home. If you develop any worsening shortness of breath please seek immediate medical attention as your pneumonia may be worsening and you may need oxygen supplementation. It is recommended that you consider a repeat chest x-ray in 4 to 6 weeks to ensure complete resolution of pneumonia. This may be ordered by her primary care doctor. It was a pleasure taking care of you! Please call if you have any questions or problems. You can reach a Zhang hospitalist on duty at [facility] 24 hours a day by calling [phone]. Take care of yourself. DO Zhang Boyce Hospitalist Pending Studies at Discharge: No Stand-Alone Forms: My [facility], Work/School Release (Inpt) Medications and DC Order Prescriptions: New guaifenesin [Mucinex] 600 mg tablet extended release 12hr 600 mg PO BID PRN (Reason: cough/congestion) Qty: 20 RF: 0 Continued atorvastatin 20 mg tablet 20 mg PO HS RF: 0 promethazine-codeine 6.25-10 mg/5 mL syrup 0 ml PO DIRECTED PRN (Reason: Cough) RF: 0 benzonatate 100 mg capsule 100 mg PO DIRECTED PRN (Reason: Cough) RF: 0 hydrochlorothiazide 25 mg tablet 25 mg PO QAM RF: 0 metoprolol succinate 25 mg tablet extended release 24 hr 25 mg PO HS RF: 0 lisinopril 40 mg tablet 40 mg PO HS RF: 0 dexamethasone 6 mg tablet 6 mg PO DAILY Qty: 10 RF: 0 Discharge Orders: Discharge Order (Routine); Ordered 09/12/20 Ordered By: Claudette Dao Admission Data Admit Date/Time: 09/10/20 21:41 Attending Provider: Claudette Dao Admit Provider: [place] Primary Care Provider: Niecy Gilliam Other Providers: [place] Other Interventions: Discharge Summary Assessment (RN) Last Done: 09/12/20 15:26
== END 2020-09-12 17:02 | disposition home or self-care (01) | DRG 177 ==
LOC: ED 17:23 → SUATTDRO 21:41 → 2S 21:41